=== PATIENT | female | born 1965 ===

== ENCOUNTER 2025-06-20 13:13 | Outpatient (CLI) | payer OTHER ==
[~2025-06-20] VITALS: Ht 165.1 cm; Wt 78.9 kg
[2025-06-20 14:15] VITALS: BP 138/80; PULSE 82; RESP 16; O2SAT 98
[2025-06-20] MEDS: SODIUM CHLORIDE 0.9% 500 ML IV ONE (14:15)
[2025-06-20] MEDS: methylPREDNISolone SOD SUCC 125 MG/2 ML VL ONE (14:43)
[2025-06-20] MEDS: diphenhdrAMINE HCL 50 MG/1 ML VL ONE (14:43)
[2025-06-20] MEDS ORDERED: IOHEXOL 350 MG/ML 100ML IJ ONE (15:04)
[2025-06-20] MEDS: diphenhdrAMINE HCL 50 MG/1 ML VL IV ONE (15:17)
[2025-06-20] MEDS: methylPREDNISolone SOD SUCC 125 MG/2 ML VL IV ONE (15:18)
--- NOTE | 2025-06-20 15:58 | DVH ---
Indication: R/O PE Technique: CT axial images of the chest are obtained with intravenous contrast per CT angiogram prot ocol. Coronal and sagittal reformats were obtained. Radiation Dose Information: CTDI volume is 11.84 mGy. Dose-length product is 338.48 mGy*cm Comparison: None FINDINGS: No filling defects in the main left and right pulmonary arteries. Segmental and subsegmental branches suboptimally characterized, no definitive defect identified. Trachea patent. No pneumothorax. Bilateral atelectasis. Bilateral lower lobe ground-glass opacificati on. Heart normal in size. Coronary artery calcification disease. No supraclavicular, axillary lymphadeno ventura. Hepatic steatosis. No aggressive osseous process. IMPRESSION: No evidence for large pulmonary embolism. Bilateral ground-glass opacities which can be seen with hypoventilation, infection, inflammatory etio logies. Hepatic steatosis. Coronary artery calcification disease.
[2025-06-20 16:30] VITALS: BP 138/78; PULSE 83; RESP 20; O2SAT 98
== END 2025-06-20 17:00 | disposition home or self-care (01) ==
LOC: Rad HDHVI 13:13
PROVIDERS: ATTEND Internal Medicine Cardiovascular Disease
DX: I25.10 Atherosclerotic heart disease of native coronary artery without angina pectoris (principal); K76.0 Fatty (change of) liver, not elsewhere classified; E11.9 Type 2 diabetes mellitus without complications; I10 Essential (primary) hypertension; E78.00 Pure hypercholesterolemia, unspecified
CPT/HCPCS: 71275; 96361; 96374; 96375; G0463; J1200; J2919; J7040; Q9967; 96360

== ENCOUNTER 2025-06-21 09:55 | Outpatient (CLI) | payer OTHER ==
[2025-06-20 14:15] VITALS: BP 138/80; PULSE 82; RESP 16; O2SAT 98
[2025-06-20 16:30] VITALS: BP 138/78; PULSE 83; RESP 20; O2SAT 98
== END 2025-06-21 17:00 | disposition home or self-care (01) ==
LOC: Rad HDHVI 09:55
PROVIDERS: ATTEND Internal Medicine Cardiovascular Disease
DX: I08.0 Rheumatic disorders of both mitral and aortic valves (principal); R07.89 Other chest pain
CPT/HCPCS: 93306

== ENCOUNTER 2025-06-25 12:50 | Outpatient (CLI) | payer OTHER ==
[~2025-06-25] VITALS: Ht 165.1 cm; Wt 78.9 kg
[2025-06-25] MEDS ORDERED: ADENOSINE 90 MG/30 ML INJ IV ONE (12:56)
[2025-06-25] MEDS ORDERED: ADENOSINE 66 MG in GIVE UN-DILUTED 0 ML IV ONE (14:00)
== END 2025-06-25 17:00 | disposition home or self-care (01) ==
LOC: Rad HDHVI 12:50
PROVIDERS: ATTEND Internal Medicine Cardiovascular Disease
DX: R07.89 Other chest pain (principal); R06.00 Dyspnea, unspecified; R06.02 Shortness of breath; E78.00 Pure hypercholesterolemia, unspecified; E11.9 Type 2 diabetes mellitus without complications; I10 Essential (primary) hypertension; R94.31 Abnormal electrocardiogram [ECG] [EKG]
CPT/HCPCS: 78452; 93017; A9500; J0153